=== PATIENT | male | born 1985 | race African-American/Black ===

== ENCOUNTER 2020-02-05 03:22 | Emergency (ER) | payer SELFPAY ==
[~2020-02-05] VITALS: Ht 175.3 cm; Wt 99.8 kg
[2020-02-05] MEDS ORDERED: CEFTRIAXONE SOD 500 MG VIAL IM ONE (03:45)
[2020-02-05] MEDS ORDERED: CEFTRIAXONE SOD 500 MG VIAL ONE (03:59)
[2020-02-05] MEDS ORDERED: LIDOCAINE HCL 1% LOCAL INJ 20 ML VIAL ONE (04:00)
[2020-02-05 04:35] VITALS: BP 160/94
== END 2020-02-05 04:33 | disposition home or self-care (01) ==
LOC: FSED 03:22
DX: R30.0 Dysuria (principal); A54.01 Gonococcal cystitis and urethritis, unspecified
CPT/HCPCS: 81003; 96372; 99283; J0696; J2001

== ENCOUNTER 2021-10-20 04:08 | Emergency (ER) | payer SELFPAY ==
[~2021-10-20] VITALS: Ht 175.3 cm; Wt 99.8 kg
[2021-10-20] MEDS ORDERED: CEFTRIAXONE 1 GM VIAL ONE (05:40)
[2021-10-20] MEDS ORDERED: CEFTRIAXONE 500 MG VIAL ONE (05:43)
[2021-10-20] MEDS ORDERED: DOXYCYCLINE HY100 MG PO (05:47)
[2021-10-20] MEDS ORDERED: CEFTRIAXONE 500 MG VIAL IM ONE (06:00)
== END 2021-10-20 05:55 | disposition home or self-care (01) ==
LOC: FSED 05:20
DX: R36.9 Urethral discharge, unspecified (principal); Z72.51 High risk heterosexual behavior
CPT/HCPCS: 81003; 99283; J0696